=== PATIENT | male | born 1975 | race Caucasian/White ===

== ENCOUNTER 2023-01-25 20:40 | Emergency (ER) | payer OTHER, SELFPAY ==
[2023-01-25 20:47] VITALS: BP 107/53; PULSE 91; RESP 20; TEMP 36.8; O2SAT 94; BMI 44.9
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
[2023-01-25 21:05] LABS: Basophils Absolute Auto 0.1 10^3/uL (0.0-0.1); Basophils Percent Auto 0.8 % (0.2-2.0); Eosinophils Absolute Auto 0.1 10^3/uL (0.0-0.7); Eosinophils Percent Auto 1.2 % (0.9-7.0); Hematocrit 45.9 % (42.0-54.0); Hemoglobin 15.5 g/dL (14.0-18.0); Immature Granulocytes Abs Auto 0.05 10^3/uL (0.00-0.03); Immature Granulocytes Pct Auto 0.7 % (0.0-0.5); Lymphocytes Absolute Auto 2.3 10^3/uL (1.2-3.8); Lymphocytes Percent Auto 30.8 % (20.5-60.0); Mean Corpuscular HGB Conc 33.8 g/dL (29.9-35.2); Mean Corpuscular Hemoglobin 29.9 pg (25.9-34.0); Mean Corpuscular Volume 88.4 fL (80.0-94.0); Mean Platelet Volume 10.9 fL (9.5-13.5); Monocytes Absolute Auto 0.8 10^3/uL (0.3-0.8); Monocytes Percent Auto 10.8 % (1.7-12.0); Neutrophils Absolute Auto 4.2 10^3/uL (1.4-6.5); Neutrophils Percent Auto 55.7 % (43.0-75.0); Platelet Count 183 10^3/uL (150-450); Red Blood Count 5.19 10^6/uL (4.70-6.10); Red Cell Distribution Width 11.8 % (11.0-15.0); White Blood Count 7.5 10^3/uL (4.0-11.0)
[2023-01-25 21:20] LABS: Alanine Aminotransferase 22 U/L (16-63); Albumin Globulin Ratio 1.4; Albumin Level 4.3 g/dL (3.4-5.0); Alkaline Phosphatase 90 U/L (46-116); Anion Gap 14.5; Aspartate Amino Transferase 19 U/L (15-37); BUN Creatinine Ratio 14.9; Bilirubin Total 0.4 mg/dL (0.2-1.0); Calcium 8.5 mg/dL (8.5-10.1); Carbon Dioxide 27.5 mmol/L (21.0-32.0); Chloride 103 mmol/L (98-107); Estimated GFR (African America >60 (>=60); Estimated GFR (Non-African Ame >60 (>=60); Globulin 3.1 g/dL; Glucose 170 mg/dL (74-106); Sodium 141 mmol/L (136-145); Total Protein 7.4 g/dL (6.4-8.2)
[2023-01-25] MEDS: PIPERACILLIN SODIUM/TAZOBACTAM 3.375 GM in 0.9 % SODIUM CHLORIDE 50 ML IV (21:20)
[2023-01-25] MEDS: ADACEL DIPH,PERTUSS(ACELL),TET VAC/PF 0.5 ML ADULT SYRINGE IM (21:40)
--- NOTE | 2023-01-25 21:45 | XR_ITS ---
[facility] [id number] Patient Name: RADHA DILLARD MRN: [id number] date: 1975 Sex: M Assigned Patient Location: ER Current Patient Location: ER Accession/Order Number: [id number] Exam Date: 01/25/2023 21:45 Report Date: 01/25/2023 22:29 At the request of: GAMA CLEMENTS Procedure: XR hand LT min 3V EXAM: XR hand LT min 3V HISTORY: trauma COMPARISON: None. TECHNIQUE: 3 views of the left hand are performed. FINDINGS: There is no acute fracture. The bony structures are intact. There appears to be a laceration overlying the palmar the hand. Soft tissue irregularity seen along the lateral aspect of the wrist. 2 tiny radiodensities project along the ulnar aspect of the wrist. XR/XR hand LT min 3V IMPRESSION: Soft tissue injury. No fracture. Suspected 2 tiny soft tissue foreign bodies along the ulnar aspect of the wrist. Electronically authenticated by: AUSTIN WEATHERS Date: 01/25/2023 22:29
[2023-01-25] MEDS: KETOROLAC TROMETHAMINE 30 MG/ML VIAL IVP (22:33)
[2023-01-25 23:09] VITALS: BP 142/78
== END 2023-01-25 23:10 | disposition home or self-care (01) ==
PROVIDERS: Emergency Provider Internal Medicine
DX: S61.432A Puncture wound without foreign body of left hand, initial encounter (principal); W32.0XXA Accidental handgun discharge, initial encounter; Z23 Encounter for immunization
CPT/HCPCS: 36415; 73130; 80053; 85025; 90471; 90715; 96365; 96375; 99285